=== PATIENT | female | born 1930 | race Caucasian/White ===

== ENCOUNTER 2016-12-13 11:46 | Inpatient (IN) | payer MEDICARE, BC ==
[~2016-12-13] VITALS: Ht 154.9 cm; Wt 47.9 kg
--- NOTE | ~2016-12-13 | PROC NOTE ---
[place], [place] PROCEDURE NOTE NAME: CORWIN RAMIREZ UNIT #: [id number] ROOM: 412 DOCTOR: AKASH PRATHER MD BIRTHDATE: [birth year] DOS: 12/16/2016 NAME OF THE PROCEDURE: Bone marrow biopsy. PROCEDURE NOTE: The patient was asked to lie on ____ belly. Left posterior iliac area was cleaned and draped. 1% lidocaine was given to numb the area and the periosteum of the bone. Brian was made and a bone marrow biopsy needle was inserted and ____ bone marrow biopsy procedure was done on the left posterior iliac area and aspirate was also sent for flow and cytogenetics. The patient tolerated the procedure. Blood loss was zero. There were few nursing students and a nurse present at the time of the procedure. PREOPERATIVE DIAGNOSIS: Leukemia. POSTOPERATIVE DIAGNOSIS: Leukemia. AKASH PRATHER MD CM:PROCNOTE:PROCEDURE NOTE [id number] AKASH PRATHER MD
--- NOTE | ~2016-12-13 | PR ---
[place], [place] PROGRESS NOTE NAME: CORWIN RAMIREZ UNIT #: [id number] ROOM: 412 DOCTOR: AKASH PRATHER MD BIRTHDATE: [birth year] DOS: 12/17/2016 SUBJECTIVE: The patient is doing better, though her appetite is not that great. She had a bone marrow biopsy done yesterday which did not have any complications. There is no pain and feeling good. PHYSICAL EXAMINATION: GENERAL: She is a pleasant woman in no apparent distress. VITAL SIGNS: Stable. She is afebrile. HEENT: Normocephalic, atraumatic NECK AND THYROID: Supple. No JVD, thyromegaly, or lymphadenopathy. HEART: Normal S1, S2. Regular rate and rhythm. LUNGS: Clear to auscultation and percussion. ABDOMEN: Soft. Nontender, nondistended. Bowel sounds present. EXTREMITIES: Normal ROM. No clubbing. No edema. LABORATORY DATA: Pending. ASSESSMENT: 1. Leukemia. 2. Leukocytosis secondary to #1. PLAN: Bone marrow biopsy has been done. We will wait for the biopsy to come back as well as flow cytometry. Depending upon that, further intervention. Discussed the patient about it, seemed to understand it. Ample time was given for the patient to ask me questions. AKASH PRATHER MD CM:PNTRANS [phone] AKASH PRATHER MD 12/18/16119 interface
--- NOTE | ~2016-12-13 | PR ---
[place], [place] PROGRESS NOTE NAME: CORWIN RAMIREZ UNIT #: [id number] ROOM: 412 DOCTOR: MARILYNN SUAREZ MD BIRTHDATE: [birth year] DOS: 12/16/2016 SUBJECTIVE: The patient is very weak, poor appetite, difficulty with walking and somewhat not sure about how she wants to proceed with further workup of her possible leukemia. The patient wants to have a discussion with her friends and neighbors before she decides. PHYSICAL EXAMINATION: VITAL SIGNS: Blood pressure 114/52 heart rate of 107 beats per minute, afebrile, breathing normally, generalized weakness. GENERAL APPEARANCE: The patient is alert and oriented x 3, in no visible distress. HEENT AND NECK: Exam within normal limits. CARDIOVASCULAR SYSTEM: Heart rate is regular in rate and rhythm. S1 and S2 normally audible. LUNGS: Clear to auscultation. ABDOMEN: Soft, nontender. No obvious organomegaly. Bowel sounds are present. EXTREMITIES: Without significant cyanosis or edema. IMPRESSION: The patient with old age and disability with recurrent falls at home because of generalized weakness, poor appetite. The patient is not eating well. I have given an option for her going to rehab at a nursing facility and it is up to the patient that she can only choose conservative treatment and not go for any further workup of her possible leukocytosis. The patient understands this, but she has not completely decided whether she wants a bone marrow biopsy or not. The patient with suspected leukemia, scheduled for bone marrow biopsy today by Dr. Devlin. Total white cell count was 72,300 today. It has been ranging between [id number] during this admission. 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 Hypothyroidism, treated with thyroid supplements. 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 dietary services director and patient care management have been consulted to help with rehabilitation facility, transfer. [place], [place] PROGRESS NOTE NAME: CORWIN RAMIREZ UNIT #: [id number] ROOM: 412 DOCTOR: MARILYNN SUAREZ MD BIRTHDATE: [birth year] MARILYNN SUAREZ MD CM:PNTRANS [id number] MARILYNN SUAREZ MD 12/16/16 2313 interface
--- NOTE | ~2016-12-13 | PR ---
[place], [place] PROGRESS NOTE [facility]: [id number] UNIT #: [id number] ROOM: 412 DOCTOR: AKASH PRATHER MD BIRTHDATE: [birth year] DOS: 12/16/2016 SUBJECTIVE: The patient is doing better. She is awake, alert, and responsive. REVIEW OF SYSTEMS HEENT: No trouble swallowing. No double vision. No loss of vision. No pain. ENT AND RESPIRATORY: No wheeze. No change in voice. No cough. No shortness of breath. No coughing up blood. No epistaxis. CARDIOLOGIC: No chest pain. No dizziness. No irregular heartbeat. No leg edema. No palpitations. No shortness of breath. HEMATOLOGIC AND LYMPH: No past transfusion. No fatigue. No loss of appetite. No easy bruising. GASTROENEROLOGIC: No change in bowel habits. No vomiting blood. No abdominal cramping. No nausea. No vomiting. No diarrhea. No constipation. No blood in stool. FEMALE REPRODUCTIVE: No dyspareunia. No pelvic pain. MUSCULOSKELETAL: No back pain. No muscle pain or weakness. No tingling/numbness. UROLOGIC: No pain with urination. No difficulty urinating. No frequent urination. NEUROLOGIC: No burning pain in feet. No trouble with coordination. No loss of consciousness. No headache. No tingling/numbness. No memory loss. PHYSICAL EXAMINATION: GENERAL: Pleasant woman in no apparent distress. VITAL SIGNS: Stable. She is afebrile. HEENT: Normocephalic, atraumatic NECK AND THYROID: Supple. No JVD, thyromegaly, or lymphadenopathy. HEART: Normal S1, S2. Regular rate and rhythm. LUNGS: Clear to auscultation and percussion. ABDOMEN: Soft. Nontender, nondistended. Bowel sounds present. EXTREMITIES: Normal ROM. No clubbing. No edema. LABORATORY DATA: White count 72.3, hemoglobin 13.3, hematocrit 42.6, platelet count 190,000. Peripheral smear shows some myelocytes, metamyelocytes, and blasts. ASSESSMENT: 1. Leukemia. 2. Generalized weakness. 3. 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 PLAN: I had a detailed discussion with the patient. The patient does ____ further evaluation of leukemia. Subsequently, I am going to do a bone marrow biopsy for further evaluation. I had a detailed discussed about the procedure as well as the reason for it, she seemed to understand it. Ample time was given to the patient to ask me questions. [place], [place] PROGRESS NOTE NAME: CORWIN RAMIREZ UNIT #: [id number] ROOM: [facility] DOCTOR: AKASH PRATHER MD BIRTHDATE: [birth year] AKASH PRATHER MD CM:NEDA [phone] AKASH PRATHER MD 12/16/16 225 interface
--- NOTE | ~2016-12-13 | PR ---
[place], [place] PROGRESS NOTE [id number] UNIT #: [id number] ROOM: 412 DOCTOR: AKASH PRATHER MD BIRTHDATE: [birth year] DOS: 12/15/2016 SUBJECTIVE: The patient is doing better, all counts are stable. White count is decreased slightly. The patient does not want to go to ____, wants workup done here. REVIEW OF SYSTEMS: HEENT: No trouble swallowing. No double vision. No loss of vision. No pain. ENT AND RESPIRATORY: No wheeze. No change in voice. No cough. No shortness of breath. No coughing up blood. No epistaxis. CARDIOLOGIC: No chest pain. No dizziness. No irregular heartbeat. No leg edema. No palpitations. No shortness of breath. HEMATOLOGIC AND LYMPH: No past transfusion. No fatigue. No loss of appetite. No easy bruising. GASTROENEROLOGIC: No change in bowel habits. No vomiting blood. No abdominal cramping. No nausea. No vomiting. No diarrhea. No constipation. No blood in stool. FEMALE REPRODUCTIVE: No dyspareunia. No pelvic pain. MUSCULOSKELETAL: No back pain. No muscle pain or weakness. No tingling/numbness. UROLOGIC: No pain with urination. No difficulty urinating. No frequent urination. NEUROLOGIC: No burning pain in feet. No trouble with coordination. No loss of consciousness. No headache. No tingling/numbness. No memory loss. PHYSICAL EXAMINATION: GENERAL: Pleasant woman in no apparent distress. VITAL SIGNS: Stable. HEENT: Normocephalic, atraumatic. NECK AND THYROID: Supple. No JVD, thyromegaly, or lymphadenopathy. HEART: Normal S1, S2. Regular rate and rhythm. LUNGS: Clear to auscultation and percussion. ABDOMEN: Soft. Nontender, nondistended. Bowel sounds present. EXTREMITIES: Normal ROM. No clubbing. No edema. LABORATORY DATA: White count of 58.4, hemoglobin of 13.3, hematocrit 42.7, platelet count of 180,000. Peripheral smear shows metamyelocytes and blasts. ASSESSMENT: 1. Leukocytosis, probably leukemia. 2. Failure to thrive. 3. Possible urinary tract infection. 4. Coronary artery disease. PLAN: Cytometry has been ordered. We are going to do a bone marrow biopsy for further evaluation depending on further intervention. I had a detailed discussion with the patient about it, seemed to understand it, agreed with the plan. [place], [place] PROGRESS NOTE NAME: CORWIN RAMIREZ UNIT #: [id number] ROOM: 412 DOCTOR: AKASH PRATHER MD BIRTHDATE: [birth year] AKASH PRATHER MD CM:PNRAQUEL 2 AKASH PRATHER MD 12/15/1652 interface
--- NOTE | ~2016-12-13 | PR ---
[place], [place] PROGRESS NOTE NAME: CORWIN RAMIREZ UNIT #: [id number] ROOM: 412 DOCTOR: MARILYNN SUAREZ MD BIRTHDATE: [birth year] DOS: 12/15/2016 SUBJECTIVE: The patient is feeling quite weak and poor appetite. No other complaints. OBJECTIVE: VITAL SIGNS: Blood pressure 127/81, heart rate 108 beats per minute, breathing 16 times per minute, temperature 98 degrees Fahrenheit. GENERAL APPEARANCE: The patient is alert and oriented x 3, in no visible distress. Generalized weakness. HEENT AND NECK: Exam within normal limits. CARDIOVASCULAR SYSTEM: Heart rate is regular in rate and rhythm. S1 and S2 normally audible. LUNGS: Clear to auscultation. ABDOMEN: Soft, nontender. No obvious organomegaly. Bowel sounds are present. EXTREMITIES: Without significant cyanosis or edema. IMPRESSION: 1. The patient with old age and adult failure to thrive and recurrent falls at home. I will try to get her to long term facility at the [facility]. 2. Leukocytosis, probably leukemia, being followed by Hematology. 3. Suspected urine infection, treated with antibiotic, urine cultures have been negative. 4. Coronary artery disease of the [place] vessels without chest pains. 5. Hypothyroidism, treated with supplements. PLAN: The patient to undergo bone marrow biopsy tomorrow morning and then I will try to get her to a rehab center. The patient wants to be treated conservatively with a comfort care code status, and I will consult palliative care nursing staff to follow her. MARILYNN SUAREZ MD CM:PNTRANS [phone] MARILYNN SUAREZ MD 12/16/16 0431 interface
--- NOTE | ~2016-12-13 | PR ---
[place], [place] PROGRESS NOTE NAME: CORWIN RAMIREZ UNIT #: [id number] ROOM: 412 DOCTOR: MARILYNN SUAREZ MD BIRTHDATE: [birth year] DOS: OBJECTIVE: VITAL SIGNS: Blood pressure 132/57, heart rate of 80 beats per minute, breathing 20 times per minute, temperature 97.3 degrees Fahrenheit. GENERAL APPEARANCE: The patient is alert and oriented x 3, in no visible distress. HEENT AND NECK: Exam within normal limits. CARDIOVASCULAR SYSTEM: Heart rate is regular in rate and rhythm. S1 and S2 normally audible. LUNGS: Clear to auscultation. ABDOMEN: Soft, nontender. No obvious organomegaly. Bowel sounds are present. EXTREMITIES: Without significant cyanosis or edema. IMPRESSION: 1. The patient with adult failure to thrive and generalized weakness, working with Physical Therapy. The patient complains of poor appetite. 2. Leukocytosis. The patient was suspected to have leukemia, possibly chronic myeloid leukemia. Dr. Devlin to perform further evaluation. The patient does not want to go to [place] for further evaluation like Dr. Devlin was recommending and she wants to be treated conservatively and maintain a DNR/comfort care code status because of her age and overall health. 3. Multiple falls at home and adult failure to thrive. The patient working with Physical Therapy. Pneumatic [employer] Hand consulted for [facility] facility for rehabilitation. 4. Coronary artery disease and myocardial infarction history of the [place] vessels without chest pains. 5. Hypothyroidism, treated with supplements. MARILYNN SUAREZ MD CM:PNTRANS [phone] MARILYNN SUAREZ MD 12/14/16 1527 interface
--- NOTE | ~2016-12-13 | DS ---
[place], [place] DISCHARGE SUMMARY NAME: CORWIN RAMIREZ UNIT #: [id number] ROOM: 412 DOCTOR: MARILYNN SUAREZ MD BIRTHDATE: [birth year] DOS: 12/17/2016 DISCHARGE DIAGNOSES: 1. Adult failure to thrive. 2. Suspected leukemia. 3. Hypothyroidism. 4. 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 5. Old age generalized disability and failure to thrive. The patient is [facility]. HOSPITAL COURSE: The patient presented with severe leukocytosis, weakness, failure to thrive, falls at home and was found to have a suspected urine infection, but urine cultures came out to be negative. Blood cultures were also negative. The patient had persistently high leukocyte count. Leukemia being worked up with a bone marrow biopsy by Dr. Devlin. Old age, failure to thrive. The patient was having falls at home and living by herself. The patient is being sent to rehab to see if she can become independent enough to be discharged to home. Hypothyroidism, treated with supplements. Coronary artery disease of [place] vessels without chest pains. Poor appetite, stomach discomfort. The patient does not eat much. I am consulting Dr. Diaz for further evaluation. I have already discussed that with the patient. DISCHARGE MANAGEMENT: 1. Megace 400 mg b.i.d. Consult with Dr. Devlin to follow. 2. Consult with Dr. Diaz for GI evaluation for persistent nausea and stomach discomfort and inability to eat. 3. Levothyroxine 100 mcg daily. Consult physical therapy for recurrent falls. 4. Ondansetron sublingual 8 mg every 6 hours p.r.n. for nausea and vomiting. [place], [place] DISCHARGE SUMMARY NAME: CORWIN RAMIREZ UNIT #: [id number] ROOM: 412 DOCTOR: MARILYNN SUAREZ MD BIRTHDATE: [birth year] MARILYNN SUAREZ MD CM:DISCHARG [phone] MARILYNN SUAREZ MD 12/17/16 2053 interface
--- NOTE | ~2016-12-13 | CON ---
[place], [place] REPORT OF CONSULTATION [id number] UNIT #: [id number] ROOM: 412 DOCTOR: AKASH PRATHER MD BIRTHDATE: [birth year] DOS: 12/14/2016 HISTORY OF PRESENT ILLNESS: The patient is a pleasant 86-year-old [place] woman who looks much younger than her stated age, presented to the Emergency Department after she was feeling funny. She was also noted to have swelling of legs and was feeling weak. In the Emergency Department, noted to have a UTI with an elevated WBC with some monocytosis and was admitted for further evaluation and management and consulted for evaluation of leukocytosis. ALLERGIES: ASPIRIN, BACITRACIN, NEOMYCIN, POLYMYXIN. PAST MEDICAL HISTORY: Significant for hypothyroidism, history of myocardial infarction and coronary artery disease. SOCIAL HISTORY: No smoking, drinking, or drug abuse. FAMILY HISTORY: Noncontributory. She lives alone. Does not have a family. REVIEW OF SYSTEMS: CONSTITUTIONAL: No chills. No fatigue. No fever. No loss of appetite. No night sweats. No weakness. No weight loss. HEENT: No trouble swallowing. No loss of smell. No loss of hearing. No double vision. No pain. No discharge. ENT AND RESPIRATORY: No wheeze. No sore throat. No change in voice. No hearing loss. No nose bleed. No cough. No trouble breathing through nose. No shortness of breath. No coughing up blood. No epistaxis. CARDIOVASCULAR: No chest pain. No dizziness. No irregular heartbeat. No leg edema. No pain in legs while walking. No palpitations. No shortness of breath. DERMATOLOGIC: No acne. No hives. No laceration. No mole. No rash. ENDOCRINE: No cold intolerance. No diabetes. No fatigue. No hot flashes. No polydipsia. No polyuria. No urinating frequently. No weight loss. HEMATOLOGIC AND LYMPH: No fatigue. No easy bruising. GASTROENTEROLOGIC: No change in bowel habits. No indigestion. No frequent bloating. No vomiting blood. No abdominal cramping. No nausea. No heartburn. No vomiting. No abdominal pain. No dysphagia. No diarrhea. No constipation. No blood in stool. FEMALE REPRODUCTIVE: No vaginal itching. No difficulty urinating. No heavy periods. No dyspareunia. No sexually active. No dysmenorrhea. No pelvic pain. No breast pain. No nipple discharge. No abnormal vaginal discharge. No hot flashes. MUSCULOSKELETAL: No back pain. No muscle pain or weakness. No neck pain. No tingling/numbness. No swelling/bruising. No osteoporosis treatment. OPHTHALMOLOGIC: No double vision. No diminished vision. No loss of vision. UROLOGIC: No dysuria. No frequent nighttime urination. No irregular periods. No pain with urination. No difficulty urinating. No blood in urine. No frequent urination. No urinary incontinence. NEUROLOGIC: No loss of sensation in specific body area. No vertigo. No burning pain in feet. No trouble with balance. No trouble with coordination. No loss of consciousness. No loss of feeling/power. No confusion. No [place], [place] REPORT OF CONSULTATION NAME: CORWIN RAMIREZ UNIT #: [id number] ROOM: [facility] DOCTOR: AKASH PRATHER MD BIRTHDATE: [birth year] headache. No tingling/numbness. PSYCHOLOGIC: No tinnitus. No headaches. No shortness of breath. No weight decrease. No nausea. No vomiting. No abdominal discomfort. No constipation. No diarrhea. No depression. No anxiety. PHYSICAL EXAMINATION: PHYSICAL EXAMINATION: GENERAL: Pleasant woman, in no apparent distress. HEENT: Oral mucosa appears intact. The external ears are normal in appearance. Nares are patent without lesions, exudates, erythema, or inflammation. Tongue is symmetrical. Uvula is midline. NECK AND THYROID: Neck supple without palpable masses. Trachea is midline. No thyromegaly. No carotid bruit or JVD. BREASTS: Normal. Nipples unremarkable. No drainage. No lumps felt on either side. HEART: Normal S1, S2, without significant murmur, rub, or gallop. LUNGS: Clear to auscultation and percussion with good air entry bilaterally. The patient is breathing easily without the use of accessory muscles. Diaphragmatic excursions are intact. ABDOMEN: No costovertebral angle tenderness. Soft. No organomegaly or masses. Nontender. No hernias present. Liver and spleen are not palpable. LYMPHATIC: No adenopathy noted in the cervical, supraclavicular, axillary, or inguinal regions. NEUROLOGIC: Nonfocal. Oriented to person, place, and time. MENTAL STATUS: Appropriate for mood and affect. PERIPHERAL PULSES: No varicosities. Femoral and pedal pulses are palpable. EXTREMITIES: Bilateral 2+ leg edema, more on the right side. LABORATORY DATA: White count 51.0, hemoglobin of 13.7, hematocrit 44.9, platelet count of 131,000. Peripheral smear shows metamyelocytes, monocytes and blast. From 12/13/2016, white count of 16.3, hemoglobin 15.3, hematocrit 50.5, blasts 2, promyelocytes, 2 monocytes 4 and metamyelocytes 8. ASSESSMENT: 1. Persistent leukocytosis, probably leukemia. 2. Failure to thrive. 3. Sitting in the legs without any deep vein thrombosis. 4. Benign essential hypertension. PLAN: I had detailed discussion with the patient about overall condition and we may have to send her to a tertiary center for further evaluation. The patient very adamant going there. I am going to do a flow cytometry for further evaluation, depending upon that, further intervention and discuss will follow. Thanks for consulting and letting me to participate in this interesting patient. [place], [place] REPORT OF CONSULTATION NAME: JAMESCORWIN Umang UNIT #: [id number] ROOM: [facility] DOCTOR: AKASH PRATHER MD BIRTHDATE: [birth year] AKASH PRATHER MD CM:CONSTR:REPORT OF CONSULTATION 0831 12/14/16 2337 interface
--- NOTE | ~2016-12-13 | WRIGHTHP ---
[place], [place] PATIENT HISTORY AND PHYSICAL EXAM [id number] UNIT #: [id number] ROOM: 412 DOCTOR: MARILYNN SUAREZ MD BIRTHDATE: [birth year] DOS: 12/13/2016 HISTORY OF PRESENT ILLNESS: The patient is an 86-year-old female with a past medical history of: 1. Multiple falls at home. 2. History of coronary artery disease and [place]. 3. History of hypothyroidism. The patient presented to the Emergency Department at [facility] after she was falling repeatedly, also had some swelling in her legs, was feeling weak. In the Emergency Department, the patient was found to have urinary tract infection and adult failure to thrive and severely elevated white cell count of 60,000 with some monocytosis. The patient was recommended for admission and further management. After admission, the patient says she would like to maintain a DNR/comfort care code status and would like to be treated conservatively. No complaints of chest pain, shortness of breath. No other GI or urinary symptoms. REVIEW OF SYSTEMS: LUNGS: No increasing shortness of breath or wheezing. GASTROINTESTINAL: No nausea, vomiting, diarrhea or constipation. CARDIOVASCULAR: No chest pains or palpitations. FAMILY HISTORY: Noncontributory. HOME MEDICATIONS: The patient was taking thyroid supplements and blood pressure medication. ALLERGIES: Known allergies to ASPIRIN, NEOMYCIN, BACTRIM, and POLYMYXIN. PHYSICAL EXAMINATION: GENERAL: Alert and oriented x 3, in no visible distress, very weak. EXTREMITIES: With bilateral 2+ leg and pedal edema, more on the right side. LABORATORY DATA: Legs negative for DVT. White cell count elevated to 60,000 with monocytosis. BUN and creatinine 42 and 1.2. Serum proteins are normal. The patient's right foot x-ray and right ankle x-ray showed no fractures. IMPRESSION AND PLAN: 1. The patient with advanced age and adult failure to thrive with recurrent falls at home, although the patient states she had no seizures and no episode of loss of consciousness and no major injuries. I will monitor her on the heart monitor for at least 24 hours to look for any cardiac dysrhythmias. 2. Swelling in the legs without any deep venous thrombosis, signs of congestive heart failure. I will check echocardiogram. 3. Adult failure to thrive. The patient has been started on physical therapy. 4. Severe leukocytosis with white cell count of 60,000 with monocytosis. I will repeat her blood counts and consult Dr. Devlin, the molder machine for further evaluation. [place], [place] PATIENT HISTORY AND PHYSICAL EXAM NAME: CORWIN RAMIREZ UNIT #: [id number] ROOM: [facility] DOCTOR: ERICK SERRATO,MARILYNN Black BIRTHDATE: [birth year] 5. The patient would prefer to keep do not resuscitate/comfort care code status. This was discussed with nursing staff who will get it on the paper. 6. Benign essential hypertension, with controlled blood pressures. 7. Bilateral leg edema to be treated with compression socks as there are no signs of deep venous thrombosis. 8. Social Service was consulted for the patient's placement to rehab if she requires it. MARILYNN SUAREZ MD CM:HISPHYS:PATIENT HISTORY AND PHYSICAL EXAMINATION 1650 22 MARILYNN SUAREZ MD 12/13/16 182 interface
[~2016-12-13 11:46] MED LIST: OSCAL/D,OYSTER250 MG PO; SYNTHROID,LEV100 MCG PO; VALTREX1 GM PO; [UNRECOGNIZED DRUG - OTHER] PO
[2016-12-13 11:55] VITALS: BP 134/78
[2016-12-13 12:57] LABS: HEMATOCRIT 50.5 % (37.0-47.0); HEMOGLOBIN 15.3 g/dl (12.0-16.0); MEAN CELL VOLUME 85.7 fl (81.0-99.0); MEAN CORPUSCULAR HGB CONC 30.3 g/dl (33.0-37.0); NUCLEATED RED BLOOD CELL 0.1 % (0.0-0.0); PLATELET COUNT AUTOMATED 200 10*3/uL (130-400); RED BLOOD COUNT 5.89 10*6/uL (4.10-5.10); RED CELL DISTRI WIDTH 23.8 % (0-14.5)
[2016-12-13 13:15] LABS: ALBUMIN 3.3 gm/dl (3.1-4.5); CREATININE 1.21 mg/dL (0.55-1.02); POTASSIUM 4.5 mmol/L (3.5-5.1); TOTAL PROTEIN 6.9 gm/dL (6.4-8.2)
[2016-12-13 13:20] LABS: WHITE BLOOD COUNT 60.3 10*3/uL (4.8-10.8)
--- NOTE | 2016-12-13 13:20 | NUR ---
WHITE COUNT CRITICAL 60.3... EMANUEL NOTIFIED
[2016-12-13 13:54] LABS: TOTAL CELLS COUNTED 100 #CELLS
[2016-12-13 13:55] LABS: BLASTS 2 % (0-0); PLATELET SUFFICIENCY NORMAL (NORMAL)
[2016-12-13 14:31] VITALS: BP 122/74
--- NOTE | 2016-12-13 14:31 | NUR ---
URINE SENT... PATIENT ATE SOME SOUP; BUT NOT VERY MUCH... PATIENT IS VERY WEAK
[2016-12-13 14:33] LABS: BILIRUBIN 1+ (NEGATIVE); BLOOD TRACE-INTACT (NEGATIVE); CLARITY SL CLOUDY (CLEAR); COLOR YELLOW (YELLOW); GLUCOSE NEGATIVE (NEGATIVE); KETONE NEGATIVE (NEGATIVE); LEUKO ESTERASE 2+ (NEGATIVE); NITRITE NEGATIVE (NEGATIVE); SPECIFIC GRAVITY 1.025 (1.005-1.030); UROBILINOGEN 0.2 E.U./dl (0.2-1.0)
[2016-12-13 14:39] LABS: WBC 21-30 wbc/hpf (0-5)
--- NOTE | 2016-12-13 14:49 | NUR ---
DR CASTELLANOS DISCUSSING ADMITTING THE PATIENT.... ELEVATED WHITE COUNT AND UTI...
--- NOTE | 2016-12-13 15:29 | NUR ---
ATTEMPTED TO CALL REPORT; UNABLE DUE TO CHARGE NURSE BEING ON 5 AND UNSURE OF WHO IS GETTING THE PATIENT.
[2016-12-13 15:42] VITALS: BP 146/70
[2016-12-13 15:45] VITALS: BP 134/59
--- NOTE | 2016-12-13 15:46 | NUR ---
A 86, admitted to 4E, under the services of Dr. ERICK SERRATO,MARILYNN Black with a diagnosis of UTI, LEUKOCYTOSIS. Chief complaint is RIGHT LOWER EXTREMITIY SWOLEN. Patient arrived via ambulance from ER. Monitor applied. Initial assessment completed. Vital signs taken and recorded. DR. ERICK SERRATO,MARILYNN Black notified of admission to the unit. Orders received. See assessment for past medical history, medications and allergies. Patient and/or family oriented to unit. [facility] visitation policy reviewed. Clothing/patient valuable form completed. CHRIS MACDONALD
--- NOTE | 2016-12-13 19:35 | NUR ---
SPOKE WITH DR. PRATHER REGARDING CONSULT. FOLLOW UP OUT PATIENT 1 WEEK IN OFFICE.
[2016-12-13 20:00] VITALS: BP 138/52
--- NOTE | 2016-12-13 21:00 | NUR ---
dr butts called to request something for pt report of nausea. iv zofran ordered,
--- NOTE | 2016-12-13 21:29 | NUR ---
prn iv zofran given for pt report nausea.
--- NOTE | 2016-12-13 22:26 | NUR ---
PRN NAUSEA APPEARS EFFECTIVE PT IS SLEEPING EASILY AROUSED.
[2016-12-14] VITALS: BP 124/48
--- NOTE | 2016-12-14 01:57 | NUR ---
24 HR chart check completed.
[2016-12-14 05:30] LABS: HEMATOCRIT 44.9 % (37.0-47.0); HEMOGLOBIN 13.7 g/dl (12.0-16.0); MEAN CELL VOLUME 85.9 fl (81.0-99.0); MEAN CORPUSCULAR HGB 26.2 pg (27.0-31.0); MEAN CORPUSCULAR HGB CONC 30.5 g/dl (33.0-37.0); NUCLEATED RED BLOOD CELL 0.1 % (0.0-0.0); PLATELET COUNT AUTOMATED 171 10*3/uL (130-400); RED BLOOD COUNT 5.23 10*6/uL (4.10-5.10); RED CELL DISTRI WIDTH 23.4 % (0-14.5)
[2016-12-14 06:02] LABS: TOTAL CELLS COUNTED 100 #CELLS
[2016-12-14 06:04] LABS: BLASTS 3 % (0-0); PLATELET SUFFICIENCY NORMAL (NORMAL); POLYCHROMASIA SLIGHT
--- NOTE | 2016-12-14 06:38 | NUR ---
CRITICAL LAB OF WBC 51.[address] SUAREZ.
[2016-12-14 08:00] VITALS: BP 132/57
--- NOTE | 2016-12-14 08:05 | NUR ---
Medicated with zofran iv per prn order for c/o nausea.
--- NOTE | 2016-12-14 08:30 | NUR ---
Melter Helper in to talk to patient. Patient states lives at HOME ALONE with . There are 4 steps in the home. Physician: DR FERRARI Pharmacy: [facility] [place] Home health services: NONE Patient's level of ADLs: MODERATE ASSIST Patient has working utilities: YES DME: [facility] Follow-up physician's appointment after d/c: PREFERS TO MAKE HER OWN APPT Does patient want to access PORTAL?: Discharge plan . [facility] ST[facility] DISCUSSED DUE TO FALLS , [place] AND LIVING ALONE. STATES DR PRATHER JUST LEFT AND IS SENDING HER TO [facility]. WILL FOLLOW
--- NOTE | 2016-12-14 11:27 | NUR ---
Spoke with patients nephew, Jamison who is also HPOA. He stated he lives out of state ([place]) but remains her decision maker. He stated if anyone other than him with the last name Sherman would call and inquire about her, he asks they are not permitted to provide and decisions for her. He stated if she needs to go to [facility] he would prefer [facility]. There has been discussion of patient being transferred to [facility], will follow
--- NOTE | 2016-12-14 11:48 | NUR ---
PHYSICAL THERAPY PT initial eval done on 4E this morning after several attempts (having bedside echo; her MD was in; getting bathed). Moderate level eval based on chart review, pt interview and results of testing. Gaits only 20' with w/w with c/o low back pain and CG assist for support and balance. Fatigues quickly; pt voicing she wants to dc home but SNF is recommended as she does live alone and has no family near by. Please refer to eval for details. Lala Morales, PT
[2016-12-14 12:00] VITALS: BP 121/50
--- NOTE | 2016-12-14 12:23 | NUR ---
Lab notified of order for bone marrow biospy tomorrow with Dr. Devlin
--- NOTE | 2016-12-14 15:14 | NUR ---
Nutritional Support Services Note: Pt evaluated for malnutrition status. labs are not indicated for malnutrition. Albumin, and protein levels are wnl. Wt is normal at 106#. Pt is weak, needs assist with meals and encouraged to eat. Regular diet as ordered with Boost po TID. Pt lives alone, needs some assist with meals. Will follow as needed. No other nutrition intervention needed at this time. Shelby Red
[2016-12-14 16:00] VITALS: BP 125/49
--- NOTE | 2016-12-14 19:51 | NUR ---
PATIENT ASSISTED TO BSC WITH NO DISTRESS NOTED. RESPS EASY AND REGULAR. BED IN LOWEST POSITION, CALL LIGHT IN REACH
[2016-12-14 20:00] VITALS: BP 116/67
--- NOTE | 2016-12-14 20:29 | NUR ---
PATIENT MEDICATED WITH PRN ZOFRAN FOR C/O NAUSEA. WILL MONITOR
--- NOTE | 2016-12-14 22:56 | NUR ---
24 HR chart check completed.
[2016-12-15] VITALS: BP 146/65
--- NOTE | 2016-12-15 01:51 | NUR ---
PATIENT RESTING IN BED WITH NO S/S OF DISTRESS. RESPS EASY AND REGULAR. BED IN LOWEST POSITION, CALL LIGHT IN REACH
[2016-12-15 06:22] LABS: HEMATOCRIT 42.7 % (37.0-47.0); HEMOGLOBIN 13.3 g/dl (12.0-16.0); MEAN CELL VOLUME 85.7 fl (81.0-99.0); MEAN CORPUSCULAR HGB 26.7 pg (27.0-31.0); MEAN CORPUSCULAR HGB CONC 31.1 g/dl (33.0-37.0); NUCLEATED RED BLOOD CELL 0.1 % (0.0-0.0); PLATELET COUNT AUTOMATED 180 10*3/uL (130-400); RED BLOOD COUNT 4.98 10*6/uL (4.10-5.10); RED CELL DISTRI WIDTH 23.9 % (0-14.5)
[2016-12-15 06:44] LABS: BLASTS 1 % (0-0); TOTAL CELLS COUNTED 100 #CELLS
[2016-12-15 06:46] LABS: PLATELET SUFFICIENCY NORMAL (NORMAL); POLYCHROMASIA SLIGHT
[2016-12-15 06:48] LABS: WHITE BLOOD COUNT 58.4 10*3/uL (4.8-10.8)
--- NOTE | 2016-12-15 06:57 | NUR ---
DR OREILLY ANSWERING SERVICE AWARE OF CRITICAL LAB RESULT
--- NOTE | 2016-12-15 07:00 | NUR ---
DR QUEZADA AWARE OF CRITICAL WBC COUNT OF 58.4. STATES DO NOT CALL HER FOR SOMETHING LIKE THIS THIS EARLY IN THE MORNING WHEN THEY ARE ALREADY AWARE OF THE LAB BEING ELEVATED FROM THE DAY BEFORE, AND WILL SPEAK WITH DR OCAMPO LATER ON TODAY. NO ORDERS RECEIVED AT THIS TIME
[2016-12-15 08:00] VITALS: BP 122/56
--- NOTE | 2016-12-15 08:49 | NUR ---
In to see patient, she agreed to snf at [facility]. Contacted Linnea and faxed referral. Waiting on acceptance.
--- NOTE | 2016-12-15 08:53 | NUR ---
PHYSICAL THERAPY Patient presented to therapy with report of not having any relatives around the area and trying to decide whether to go to a [facility] or not. Patient's doctor came in the room, Dr. Dominguez, and informed the patient that she would have a bone marrow biopsy to determine whther she has Leukemia or not. Patient performed supine to sitting at EOB transfer with SBA X 1. Patient performed sit to stand transfer with CGA X 1. Patient performed gait with W/W and CGA X 1 for 60' x 1. Patient transferred back to bed with Mod. A X 1 due to fatigue after walking. Patient was 1:[address]ER for [address]ER
--- NOTE | 2016-12-15 11:00 | NUR ---
KRISTAL AND NEIGHBOR JESSY HERE TO VISITING. PATIENT RETURNED TO BE WITH ASSISTANCE. ELSIE SCHWARZ
[2016-12-15 12:00] VITALS: BP 134/56
--- NOTE | 2016-12-15 13:49 | NUR ---
Patient has been accepted to [facility] and can go when stable for discharge.
--- NOTE | 2016-12-15 14:23 | NUR ---
zofran given for c/o nausea. will monitor.
[2016-12-15 16:00] VITALS: BP 127/81
[2016-12-15 20:00] VITALS: BP 128/72
[2016-12-16] VITALS (7 sets, daily range): BP systolic 112–123; BP diastolic 50–63
[2016-12-16 06:30] LABS: HEMATOCRIT 42.6 % (37.0-47.0); HEMOGLOBIN 13.3 g/dl (12.0-16.0); MEAN CELL VOLUME 86.6 fl (81.0-99.0); MEAN CORPUSCULAR HGB CONC 31.2 g/dl (33.0-37.0); NUCLEATED RED BLOOD CELL 0.1 % (0.0-0.0); NUCLEATED RED BLOOD CELL 0.1 10*3/uL (0.0-0.0); PLATELET COUNT AUTOMATED 190 10*3/uL (130-400); RED BLOOD COUNT 4.92 10*6/uL (4.10-5.10); RED CELL DISTRI WIDTH 24.1 % (0-14.5)
--- NOTE | 2016-12-16 06:48 | NUR ---
PT EXPRESSING CONCERNS RE BONE BIOPSY. PT ADVISED TO ASK DR. PRATHER. PT AGREED.
[2016-12-16 06:51] LABS: BASOPHILS 1 % (0-1); TOTAL CELLS COUNTED 100 #CELLS
[2016-12-16 06:52] LABS: BLASTS 6 % (0-0)
[2016-12-16 06:53] LABS: PLATELET SUFFICIENCY NORMAL (NORMAL); POLYCHROMASIA SLIGHT
[2016-12-16 06:58] LABS: WHITE BLOOD COUNT 72.3 10*3/uL (4.8-10.8)
--- NOTE | 2016-12-16 06:58 | NUR ---
DR. ALCALA NOTIFIED OF CRITICAL WBC 72.3. NO N.O. RCVD AT THIS TIME.
--- NOTE | 2016-12-16 07:29 | NUR ---
Patient accepted to [facility], hospital exemption completed online in [employer] system, 3 night stay complete. Patient can go when ready for discharge.
--- NOTE | 2016-12-16 09:43 | NUR ---
PHYSICAL THERAPY Pt sleeping sound this first therapy visit. When i came back Giovanna with up in her bedside chair. Pt going to have a bone biopsy this AM. Pt's HR in sitting was 129 BPM and said that she felt fine. Sit/stand and standing balance X 2, one sitting rest and MOD UNDERGROUND SUPERVISOR X 1, HR went to 139 BPM with just standing balance X 2, end treatment with this, Pt having no complaints. DENILSON CHANCE SINK CUTTER.
--- NOTE | 2016-12-16 11:00 | NUR ---
Returned to bed from chair. positioned for confort. Dr. Devlin here at bedside for bone marrow procedure. Patient tolerated well, Amy Walton. KARISHMA
[2016-12-17] VITALS: BP 116/57
[2016-12-17 08:00] VITALS: BP 109/55
--- NOTE | 2016-12-17 09:34 | NUR ---
PHYSICAL THERAPY Giovanna seen this AM 1:1 for her therapy treatment, Pt was supine in bed. Transfer supine/sit MIN A X 1, sitting balance once up CG to supervision X 1, X 5 min. Sit/stand and standing balance with wheeled walker MOD A X 1. Followed by gait 110' X 1, with W/W and MOD STONE BELT SANDER X 1, cueing for gait, walker, balance and turn safety with one standing rest. Pt up in her bedside chair short rest. Followed by act Ex to bilateral LE of marching, LAQ's, and ankle pumps X 15 reps each with cueing for each Ex. Pt with call light and phone. DENILSON CHANCE MANUAL TRAINING TEACHER.
[2016-12-17 12:00] VITALS: BP 98/54
[2016-12-17 16:00] VITALS: BP 114/63
--- NOTE | 2016-12-17 20:05 | NUR ---
PT. DISCHARGED TO [facility]. REPORT GIVEN TO TRANSPORT TEAM.
--- NOTE | 2016-12-18 07:04 | NUR ---
PHYSICAL THERAPY CO-SIGN I approve of the Phyical Therapy notes written above. ROMÁN HERNANDEZ PT
== END 2016-12-17 20:05 | disposition other institution (70) | DRG 815 ==
LOC: ED 11:46 → EDHOLD 15:01 → 4E 15:01
PROVIDERS: Emergency Medicine; Internal Medicine Hematology & Oncology; ADMIT Internal Medicine
PROC: 07DR3ZX Extraction of Iliac Bone Marrow, Percutaneous Approach, Diagnostic (ICD-10-PCS; principal; 2016-12-16)
DX: D72.829 Elevated white blood cell count, unspecified (principal); E44.1 Mild protein-calorie malnutrition; Z68.1 Body mass index [BMI] 19.9 or less, adult; R62.7 Adult failure to thrive; Z66 Do not resuscitate; Z51.5 Encounter for palliative care; E03.9 Hypothyroidism, unspecified; I25.10 Atherosclerotic heart disease of native coronary artery without angina pectoris; Z88.6 Allergy status to analgesic agent; Z88.1 Allergy status to other antibiotic agents; Z88.8 Allergy status to other drugs, medicaments and biological substances; Z79.899 Other long term (current) drug therapy; Z90.710 Acquired absence of both cervix and uterus; I25.2 Old myocardial infarction; Z87.891 Personal history of nicotine dependence